=== PATIENT | male | born 1970 | race African-American/Black ===

== ENCOUNTER 2018-12-20 16:29 | Emergency (ER) | payer OTHER ==
[~2018-12-20] VITALS: Ht 185.4 cm; Wt 111.0 kg
[~2018-12-20 16:29] MED LIST: LISI1TAB9 PO; METO25TA6 PO; [UNRECOGNIZED DRUG - REMARK] PO
[2018-12-20 16:42] VITALS: BP 143/111
[2018-12-20] MEDS ORDERED: AMLO-512 PO (16:49)
[2018-12-20] MEDS ORDERED: HYDR25TA PO (16:49)
== END 2018-12-20 17:58 | disposition left against medical advice (07) ==
LOC: EMS 16:30
DX: F16.10 Hallucinogen abuse, uncomplicated (principal); R56.9 Unspecified convulsions; I10 Essential (primary) hypertension; F17.210 Nicotine dependence, cigarettes, uncomplicated; Z79.899 Other long term (current) drug therapy
CPT/HCPCS: 93005